=== PATIENT | female | born 2000 | race Caucasian/White ===

== ENCOUNTER 2019-03-31 02:57 | Emergency (ER) | payer BC ==
[~2019-03-31] VITALS: Ht 165.1 cm; Wt 80.3 kg
[2019-03-31 03:04] VITALS: Ht 165.1 cm; Wt 80.3 kg
[2019-03-31 07:22] VITALS: BP 110/60
== END 2019-03-31 07:22 | disposition home or self-care (01) ==
LOC: ED 02:57
DX: R10.13 Epigastric pain (principal); R19.7 Diarrhea, unspecified; R11.0 Nausea
CPT/HCPCS: Q0162